=== PATIENT | male | born 1965 | race Two or more races ===

== ENCOUNTER 2023-09-05 17:43 | Emergency (ER) | payer OTHER ==
[~2023-09-05] VITALS: Ht 167.6 cm; Wt 77.0 kg
[2023-09-05] MEDS ORDERED: OMEP20 PO (18:35)
[2023-09-05] MEDS ORDERED: IBUP-1554 PO (18:35)
[2023-09-05] MEDS ORDERED: ACET-66 PO (18:36)
[2023-09-05 19:52] VITALS: BP 129/63; PULSE 68; RESP 16; TEMP 97.3
== END 2023-09-05 20:10 | disposition home or self-care (01) ==
LOC: EMS 17:47
DX: G89.29 Other chronic pain (principal); M54.50 Low back pain, unspecified
CPT/HCPCS: 99282; Z7502